=== PATIENT | male | born 1970 | race Caucasian/White ===

== ENCOUNTER 2016-04-11 14:18 | Inpatient (IN) | payer OTHER ==
[2016-04-11] MEDS ORDERED: Adenocard IV 6 MG/2 ML IV ONE ×2 (14:38→14:55)
[2016-04-11] MEDS ORDERED: Sodium Chloride 0.9% 1000 ML 1,000 ML ONE (14:38)
[2016-04-11] MEDS ORDERED: Cardizem IV 50 MG/10 ML IV ONE (14:46)
[2016-04-11] MEDS ORDERED: CARDIZEM DRIP 100 MG/100 ML D5W 100 ML IV ONE (14:47)
[2016-04-11] MEDS ORDERED: BABY ASPIRIN 81 MG CHEW PO ONE (14:48)
--- NOTE | 2016-04-11 14:54 | ERPHSYRPT ---
- History of Present Illness Time Seen by Provider: 04/11/16 14:37 Source: patient Exam Limitations: no limitations Patient Subjective Stated Complaint: pt walked in for fast heart rate and dizziness today for about 4 hours now, started at rest, does not drink lots of caffine Triage Nursing Assessment: pt alert, resp easy, skin w/d, chest clear, no edema noted, Physician History: 45-year-old white male arrives with complaint of fluttering in his chest and lightheadedness symptoms since 9:30 he denies any shortness of breath denies any vomiting states he really does not have pain but he does have a fluttering sensation in his left chest patient is noted have a rapid heart rate, Past medical history is negative. Surgical history is negative. Patient states he does not take excessive caffeine use. Patient states he chews tobacco Timing/Duration: today (9:30 AM) Severity: moderate Modifying Factors: Improves With: nothing Associated Symptoms: other (ightheaded palpitations in the left upper chest), No nausea, No vomiting, No abdominal pain, No shortness of breath, No heartburn , No diaphoresis, No cough, No chills, No chest pain, No fever, No headaches, No loss of appetite, No malaise, No rash, No syncope, No seizure, No weakness Allergies/Adverse Reactions: No Known Drug Allergies Allergy (Unverified 04/11/16 14:28) Home Medications: No Reportable Medications [No Reported Medications] 04/11/16 [History] Hx Influenza Vaccination/Date Given: No Hx Pneumococcal Vaccination/Date Given: No Immunizations Up to Date: Yes - Review of Systems Constitutional: Other (patient feels lightheaded), No Fever, No Chills Eyes: No Symptoms Ears, Nose, & Throat: No Symptoms, No Ear Pain, No Ear Discharge, No Hearing Changes, No Tinnitus, No Nose Pain, No Nose Congestion, No Nose Discharge, No Sinus Drainage, No Epistaxis, No Mouth Pain, No Mouth Swelling, No Loose Teeth, No Throat Pain, No Throat Swelling, No Hoarse, No Painful Swallowing, No Snoring , No Stridor Respiratory: No Cough, No Dyspnea Cardiac: Palpitations, No Chest Pain, No Edema, No Syncope Abdominal/Gastrointestinal: No Abdominal Pain, No Nausea, No Vomiting, No Diarrhea Genitourinary Symptoms: No Dysuria Musculoskeletal: No Back Pain, No Neck Pain Skin: No Rash Neurological: No Dizziness, No Focal Weakness, No Sensory Changes Psychological: No Symptoms Endocrine: No Symptoms All Other Systems: Reviewed and Negative - Past Medical History Pertinent Past Medical History: No - Past Surgical History Past Surgical History: No - Social History Smoking Status: Never smoker Exposure to second hand smoke: No Drug Use: none Patient Lives Alone: No - Nursing Vital Signs Nursing Vital Signs: Initial Vital Signs Temperature 97.4 F Temperature Source Oral Pulse Rate [] 150 Pulse Rate 82 Respiratory Rate 20 Blood Pressure [] 106/66 Pain Intensity 0 - Physical Exam General Appearance: no apparent distress, alert Eye Exam: PERRL/EOMI, eyes nml inspection Ears, Nose, Throat Exam: normal ENT inspection, TMs normal, pharynx normal, moist mucous membranes Neck Exam: normal inspection, non-tender, supple, full range of motion Respiratory Exam: normal breath sounds, lungs clear, No respiratory distress Cardiovascular Exam: tachycardia Gastrointestinal/Abdomen Exam: soft, normal bowel sounds, No tenderness, No mass Back Exam: normal inspection, normal range of motion, No CVA tenderness, No vertebral tenderness Extremity Exam: normal inspection, normal range of motion, pelvis stable Neurologic Exam: alert, oriented x 3, cooperative, normal mood/affect, nml cerebellar function, nml station & gait, sensation nml, No motor deficits Skin Exam: normal color, warm, dry, No rash Lymphatic Exam: No adenopathy SpO2 Interpretation: normal (96%) SpO2: 96 Oxygen Delivery: Room Air - Course Nursing assessment & vital signs reviewed: Yes EKG Interpreted by Me: RATE (141 nbpm), Other (supraventricular tachycardia 141 bpm narrow complex no acute ST or T wave changes, axisSI/QIII pattern) - Radiology Exams Chest X-ray Interpretation: Discussed w/ radiologist, Negative Ordered Tests: Active Orders 24 hr Category Date Time Status 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 Care 04/11/16 14:48 Active EKG-ER Only STAT Care 04/11/16 14:48 Active EKG-ER Only STAT Care 04/11/16 15:31 Active CHEST 1 VIEW (PORTABLE) Stat Exams 04/11/16 14:48 Completed CBC W DIFF Stat Lab 04/11/16 14:40 Completed CMP Stat Lab 04/11/16 14:40 Completed D-DIMER QUANTITATION Stat Lab 04/11/16 14:40 Completed TROPONIN Q3H Lab 04/11/16 14:40 Completed TROPONIN Q3H Lab 04/11/16 18:00 Ordered TROPONIN Q3H Lab 04/11/16 21:00 Ordered TROPONIN Q3H Lab 04/12/16 00:00 Ordered TROPONIN Q3H Lab 04/12/16 03:00 Ordered Transfer Order Routine Transfer 04/11/16 16:03 Ordered Medication Summary Generic Name Dose Route Start Last Admin Trade Name Freq PRN Reason Stop Dose Admin Sodium Chloride 1,000 mls @ 100 mls/hr 04/11/16 15:00 04/11/16 15:02 Sodium Chloride 0.9% 1000 Ml IV 05/11/16 14:59 100 mls/hr .Q10H SARANYA Administration Discontinued Medications Generic Name Dose Route Start Last Admin Trade Name Freq PRN Reason Stop Dose Admin Adenosine Confirm 04/11/16 14:38 Adenocard Iv 6 Mg/2 Ml Administered 04/11/16 14:39 Dose 6 mg IV .STK-MED ONE Adenosine Confirm 04/11/16 14:55 Adenocard Iv 6 Mg/2 Ml Administered 04/11/16 14:56 Dose 12 mg IV .STK-MED ONE Aspirin 162 mg 04/11/16 14:48 04/11/16 15:02 Baby Aspirin 81 Mg Chew PO 04/11/16 14:49 162 mg STAT ONE Administration Diltiazem HCl Confirm 04/11/16 14:46 Cardizem Iv 50 Mg/10 Ml Administered 04/11/16 14:47 Dose 50 mg IV .STK-MED ONE Sodium Chloride Confirm 04/11/16 14:38 Sodium Chloride 0.9% 1000 Ml Administered 04/11/16 14:39 Dose 1,000 mls @ ud .ROUTE .STK-MED ONE Diltiazem HCl Confirm 04/11/16 14:47 Cardizem Drip 100 Mg/100 Ml D5w Administered 04/11/16 14:48 Dose 100 mls @ ud IV .STK-MED ONE Lab/Rad Data: Laboratory Result Diagrams 04/11/16 14:40 04/11/16 14:40 Laboratory Results 04/11/16 04/11/16 04/11/16 Range/Units 14:40 14:40 14:40 WBC (4.0-10.5) K/mm3 RBC (4.1-5.6) M/mm3 Hgb (12.5-18.0) gm/dl Hct (42-50) % MCV (78-100) fl MCH (26-32) pg MCHC (32-36) g/dl RDW (11.5-14.0) % Plt Count (150-450) K/mm3 MPV (6-9.5) fl Gran % (36.0-66.0) % Lymphocytes % (24.0-44.0) % Monocytes % (0.0-12.0) % Eosinophils % (0.00-5.0) % Basophils % (0.0-0.4) % Basophils # (0-0.4) D-Dimer < 0.20 (0.00-0.49) mg/L Sodium 138 (136-145) mEq/L Potassium 4.4 (3.5-5.1) mEq/L Chloride 105 (98-107) mEq/L Carbon Dioxide 20.1 L (21-32) mEq/L Anion Gap 17.5 H (5-15) MEQ/L BUN 15 (9-20) mg/dL Creatinine 1.13 (0.55-1.30) mg/dl Estimated GFR > 60 ML/MIN Glucose 113 H (70-110) MG/DL Calcium 8.7 (8.5-10.1) mg/dL Total Bilirubin 0.5 (0.2-1.0) mg/dL AST 38 H (15-37) U/L ALT 46 (12-78) U/L Alkaline Phosphatase 77 (46-116) U/L Troponin I < 0.017 (0.000-0.056) ng/ml Serum Total Protein 7.3 (6.4-8.2) gm/dL Albumin 3.6 (3.4-5.0) g/dL 04/11/16 Range/Units 14:40 WBC 8.5 (4.0-10.5) K/mm3 RBC 6.09 H (4.1-5.6) M/mm3 Hgb 17.2 (12.5-18.0) gm/dl Hct 50.6 H (42-50) % MCV 83.1 (78-100) fl MCH 28.2 (26-32) pg MCHC 34.0 (32-36) g/dl RDW 14.0 (11.5-14.0) % Plt Count 264 (150-450) K/mm3 MPV 9.9 H (6-9.5) fl Gran % 57.4 (36.0-66.0) % Lymphocytes % 28.0 (24.0-44.0) % Monocytes % 11.8 (0.0-12.0) % Eosinophils % 2.2 (0.00-5.0) % Basophils % 0.6 (0.0-0.4) % Basophils # 0.05 (0-0.4) D-Dimer (0.00-0.49) mg/L Sodium (136-145) mEq/L Potassium (3.5-5.1) mEq/L Chloride (98-107) mEq/L Carbon Dioxide (21-32) mEq/L Anion Gap (5-15) MEQ/L BUN (9-20) mg/dL Creatinine (0.55-1.30) mg/dl Estimated GFR ML/MIN Glucose (70-110) MG/DL Calcium (8.5-10.1) mg/dL Total Bilirubin (0.2-1.0) mg/dL AST (15-37) U/L ALT (12-78) U/L Alkaline Phosphatase (46-116) U/L Troponin I (0.000-0.056) ng/ml Serum Total Protein (6.4-8.2) gm/dL Albumin (3.4-5.0) g/dL - Progress Progress: improved Progress Note: 04/11/16 14:54 This is a 45-year-old white male previously healthy who arrives with complaints of fluttering in his left upper chest symptoms since 9:30 this morning she denies any shortness of breath no chest pain he does state he is feeling lightheaded. Patient is noticed to have a rapid narrow complex tachycardia 1 41 bpm on EKG there are no acute ST or T wave changes noted patient is noted have a heart rate running around 150 going around to the high 140s. Patient is given adenosine 6 mg and 12 mg grams successively IV both times with a slight slowing in rate with resumption of the heart rate therefore he was given Cardizem 20 mg bolus and started on Cardizem 10 mg per hour drip Patient's states she had already given the patient aspirin 162 mg orally will go ahead and give patient aspirin 162 mg cardiac enzymes will be obtained as well as appropriate labs and chest x-ray. 04/11/16 15:43 Patient with good response to Cardizem currently on Cardizem drip had received 20 mg IV bolus. Heart rate now 70-80. EKG atrial fibrillation 73 bpm normal axis no acute ST or T wave changes noted time of EKG to 04-11-16 at 1538. 04/11/16 16:01 His cast case with Dr. Pavan Ta who is filtration supervisor for service call for the hospital Will place patient on ICU diagnosis new onset atrial fibrillation Palpitations. Will place patient on the ICU have ICU wean patient's Cardizem drip. Will obtain serial cardiac enzymes. Dr. Ta has requested a urine triage as well as TSH. - Departure Time of Disposition: 16:02 Departure Disposition: Observation (observation ICU Dr. Ta) Clinical Impression: New onset atrial fibrillation, Atrial fibrillation with rapid ventricular response, Palpitations Condition: Fair Critical Care Time: Yes Critical Care Time(excluding separately billable procedures): 30-74 minutes Referrals: BHAVYA RIVERA NP [Primary Care Provider] -
[2016-04-11 14:59] LABS: BASOPHIL % 0.6 % (0.0-0.4); Eosinophil % 2.2 % (0.00-5.0); Granulocytes % 57.4 % (36.0-66.0); Mean Cell Volume 83.1 fl (78-100); Mean Corpuscular Hemoglobin 28.2 pg (26-32); Mean Platelet Volume 9.9 fl (6-9.5); Monocytes % 11.8 % (0.0-12.0); Platelet Count 264 K/mm3 (150-450); Red Blood Count 6.09 M/mm3 (4.1-5.6); White Blood Count 8.5 K/mm3 (4.0-10.5)
[2016-04-11] MEDS ORDERED: Sodium Chloride 0.9% 1000 ML 1,000 ML IV SCH ×2 (15:00→19:15)
--- NOTE | 2016-04-11 15:07 | XRAY ---
Indication: Tachycardia. Comparison: None Portable apical lordotic chest demonstrates normal heart, lungs, and bony thorax.
[2016-04-11 15:12] LABS: ALBUMIN 3.6 g/dL (3.4-5.0); ALKALINE PHOSPHATASE 77 U/L (46-116); ANION GAP 17.5 MEQ/L (5-15); BILIRUBIN,TOTAL 0.5 mg/dL (0.2-1.0); BLOOD UREA NITROGEN 15 mg/dL (9-20); CHLORIDE 105 mEq/L (98-107); Carbon Dioxide 20.1 mEq/L (21-32); Glucose 113 MG/DL (70-110); Potassium 4.4 mEq/L (3.5-5.1); SGOT/AST 38 U/L (15-37); SGPT/ALT 46 U/L (12-78); SODIUM 138 mEq/L (136-145); Total Protein 7.3 gm/dL (6.4-8.2)
[2016-04-11] MEDS ORDERED: MILK OF MAGNESIA 30 ML PO PRN (16:58)
[2016-04-11] MEDS ORDERED: Zofran 4 MG/2 ML VIAL IV PRN (16:58)
[2016-04-11] MEDS ORDERED: Senokot-S Tablet PO PRN (16:58)
[2016-04-11] MEDS ORDERED: MAALOX ES 30 ML UNIT DOSE PO PRN (16:58)
[2016-04-11] MEDS: TYLENOL 325 MG PO PRN (17:06)
--- NOTE | 2016-04-11 18:28 | PCM.HP ---
History of Present Illness - Chief Complaint Chief Complaint: AFIB with RVR Date: 04/11/16 History of Present Illness: is a 45 year old male. previously healthy who has been at home on a long weekend and woke up this am and did not feel himself. He began having fatigue and fluttering in his chest and told his who checked his pulse which was high and erratic. He has never had symptoms like this in the past. he had no chest pain. He rarely drinks alcohol and had 1 beer over the weekend. He denies any illegal drug use and no supplements. He denies any excessive caffeine use. He was feeling well up until today with no new symptoms. - Review of Systems Constitutional: No Fever, No Chills Eyes: No Symptoms Ears, Nose, & Throat: No Symptoms Respiratory: No Cough, No Short Of Breath Cardiac: Palpitations, No Chest Pain, No Edema, No Syncope, No Orthopnea Abdominal/Gastrointestinal: No Abdominal Pain, No Nausea, No Vomiting, No Diarrhea Genitourinary Symptoms: No Dysuria Musculoskeletal: No Back Pain, No Neck Pain Skin: No Rash Neurological: No Dizziness, No Focal Weakness, No Sensory Changes Psychological: No Symptoms Endocrine: No Symptoms Hematologic/Lymphatic: No Symptoms Immunological/Allergic: No Symptoms Medications & Allergies Home Medications: Home Medication List No Reportable Medications [No Reported Medications] 04/11/16 [History Confirmed 04/11/16] Allergies/Adverse Reactions: Allergies Allergy/AdvReac Type Severity Reaction Status Date / Time No Known Drug Allergies Allergy Unverified 04/11/16 14:28 - Past Medical History Past Medical History: No Neurological History: No Pertinent History ENT History: No Pertinent History Cardiac History: No Pertinent History Respiratory History: No Pertinent History Endocrine Medical History: No Pertinent History Musculoskelatal History: No Pertinent History GI Medical History: No Pertinent History History: No Pertinent History Pyscho-Social History: No Pertinent History Male Reproductive Disorders: No Pertinent History - Past Surgical History Past Surgical History: No - Social History Smoking Status: Never smoker (chews tobacco daily) Exposure to second hand smoke: No Alcohol: Rarely Drug Use: none Significant Family History: other (Mother at 56 y/o from apparent pulmonary embolism. Father from COPD and traumatic brain injury) - Physical Exam Vital Signs: Vital Signs - 24 hr Temp Pulse Pulse Resp BP Pulse Ox 04/11/16 17:59 98.3 F 73 23 104/69 97 04/11/16 17:18 98.7 F 78 18 101/69 95 04/11/16 17:00 98.3 F 73 23 104/69 97 04/11/16 16:13 96 04/11/16 15:53 82 20 106/66 96 04/11/16 15:00 82 14 116/56 96 04/11/16 14:30 150 H 04/11/16 14:25 97.4 F 148 H 20 112/67 96 General Appearance: no apparent distress, alert, obese Neurologic Exam: alert, oriented x 3, cooperative, normal mood/affect, nml cerebellar function, nml station & gait, sensation nml, No motor deficits Eye Exam: PERRL/EOMI, eyes nml inspection Ears, Nose, Throat Exam: normal ENT inspection, TMs normal, pharynx normal, moist mucous membranes Neck Exam: normal inspection, non-tender, supple, full range of motion Respiratory Exam: normal breath sounds, lungs clear, No respiratory distress Cardiovascular Exam: regular rate/rhythm, normal heart sounds, normal peripheral pulses, irregular, No murmur, No edema Gastrointestinal/Abdomen Exam: soft, normal bowel sounds, No tenderness, No mass Back Exam: normal inspection, normal range of motion, No CVA tenderness, No vertebral tenderness Extremity Exam: normal inspection, normal range of motion, pelvis stable Skin Exam: normal color, warm, dry, No rash Lymphatic Exam: No adenopathy Results - Labs Lab/Micro Results: Lab Results-Last 24 Hours 04/11/16 Range/Units 16:58 TSH 3rd Generation 0.737 (0.358-3.740) mIU/L - Radiology Impressions Radiology Exams & Impressions: Radiology Procedures Category Date Time Status ECHO W/2D AND DOPPLER [US] Routine Exams 04/11/16 17:57 Ordered - Other Procedures and Tests Respiratory Therapy 04/11/16 23:38 EKG ONCE 04/12/16 05:00 EKG ONCE 04/13/16 05:00 EKG ONCE 04/14/16 05:00 EKG ONCE Assessment/Plan (1) Atrial fibrillation with rapid ventricular response Current Visit: Yes Status: Acute Assessment & Plan: will get echocardiogram likely onset today but no previous exam will rate control and anticoagulate discussed anticoagulation options he would prefer no monitoring if possible discussed if echo with structural disease will need to change therapy start eliquis now currently labile HR with movement will continue gtt wean as tolerated tonight on cardizem and transition to po in am. trend troponins Code(s): I48.91 - UNSPECIFIED ATRIAL FIBRILLATION (2) New onset atrial fibrillation Current Visit: Yes Status: Acute Code(s): I48.91 - UNSPECIFIED ATRIAL FIBRILLATION
[2016-04-11 19:00] LABS: MAGNESIUM 1.9 mg/dL (1.8-2.4)
[2016-04-11 19:01] LABS: TROPONIN < 0.017 ng/ml (0.000-0.056)
[2016-04-11] MEDS: ELIQUIS PO SCH (21:48)
[2016-04-12] MEDS ORDERED: CARDIZEM DRIP 100 MG/100 ML D5W 100 ML IV ONE (00:21)
[2016-04-12] MEDS: TYLENOL 325 MG PO PRN (00:26)
[2016-04-12] MEDS ORDERED: CARDIZEM DRIP 100 MG/100 ML D5W 100 ML IV SCH (00:30)
[2016-04-12] MEDS: Lopressor 25MG Tab PO SCH ×2 (08:51→09:22)
[2016-04-12] MEDS: ELIQUIS PO SCH (08:51)
[2016-04-12] MEDS ORDERED: Ecotrin 325 MG PO SCH (10:00)
[2016-04-12 10:07] VITALS: O2SAT 97
[2016-04-12 12:10] VITALS: BP 113/85; PULSE 141
--- NOTE | 2016-04-12 13:00 | PCM.NOTE ---
Date and Time: 04/12/16 1256 Subjective Assessment: feeling a little better this am. He had low bp and some bradycardia overnight and Cardizem gtt was stopped has been doing well since then but has not been up yet. jumps to the 140's with any activity at this point. Objective Exam General Appearance: no apparent distress, alert Neurologic Exam: alert, oriented x 3, cooperative, normal mood/affect, nml cerebellar function, sensation nml, No motor deficits Skin Exam: normal color, warm, dry Eye Exam: PERRL, EOMI, eyes nml inspection Ears, Nose, Throat Exam: normal ENT inspection, pharynx normal, moist mucous membranes Neck Exam: normal inspection, non-tender, supple, full range of motion Respiratory Exam: normal breath sounds, lungs clear, No respiratory distress Cardiovascular Exam: normal heart sounds, normal peripheral pulses, irregular, No edema Gastrointestinal/Abdomen Exam: soft, No tenderness, No mass Extremity Exam: normal inspection, normal range of motion Back Exam: normal inspection, normal range of motion, No CVA tenderness, No vertebral tenderness Male Genitalia Exam: deferred Rectal Exam: deferred OBJECTIVE DATA Vital Signs: Vital Signs - 24 hr Temp Pulse Pulse Resp BP Pulse Ox 04/12/16 12:00 141 H 21 113/85 97 04/12/16 10:06 94 H 21 101/69 97 04/12/16 07:32 91 H 21 90/68 96 04/12/16 07:00 84 21 90/68 93 L 04/12/16 06:00 76 25 H 83/58 96 04/12/16 05:00 74 21 86/42 96 04/12/16 04:00 61 22 81/55 93 L 04/12/16 03:00 65 21 81/49 92 L 04/12/16 02:41 64 18 98/56 96 04/12/16 02:30 62 23 85/49 91 L 04/12/16 02:00 66 20 98/56 94 L 04/12/16 01:30 66 24 78/51 94 L 04/12/16 01:00 71 20 84/59 94 L 04/12/16 00:01 66 04/12/16 00:00 97.4 F 66 22 109/61 94 L 04/11/16 23:00 79 22 106/65 94 L 04/11/16 22:00 72 22 94/69 97 04/11/16 21:00 74 27 H 99/65 95 04/11/16 20:00 98.1 F 91 H 20 96/60 93 L 04/11/16 18:56 98.1 F 80 31 H 96/64 95 04/11/16 17:59 98.3 F 73 23 104/69 97 04/11/16 17:18 98.7 F 78 18 101/69 95 04/11/16 17:00 98.3 F 73 23 104/69 97 04/11/16 16:13 96 04/11/16 15:53 82 20 106/66 96 04/11/16 15:00 82 14 116/56 96 04/11/16 14:30 150 H 04/11/16 14:25 97.4 F 148 H 20 112/67 96 Pain Assessment - Last Documented Pain Intensity 3 Pain Scale Used 0-10 Pain Scale Intake and Output: Intake & Output 04/10/16 04/11/16 04/12/16 04/13/16 11:59 11:59 11:59 11:59 Intake Total 916 Output Total 2425 Balance -1509 Weight 135.171 kg Lab Results: Lab Results-Last 24 Hours 04/11/16 04/11/16 04/11/16 Range/Units 16:58 18:24 19:01 Magnesium 1.9 (1.8-2.4) mg/dL Troponin I < 0.017 (0.000-0.056) ng/ml Triglycerides (30-200) mg/dL Cholesterol (100-200) mg/dL LDL Cholesterol (5-99) mg/dL HDL Cholesterol (35-60) mg/dL Heart Disease Risk Ratio TSH 3rd Generation 0.737 (0.358-3.740) mIU/L Urine Opiates Level NEG. (NEGATIVE) Ur Methadone NEG. (NEGATIVE) Urine Barbiturates NEG. (NEGATIVE) Ur Phencyclidine (PCP) NEG. (NEGATIVE) Urine Amphetamine NEG. (NEGATIVE) U Benzodiazepine Level NEG. (NEGATIVE) Urine Cocaine NEG. (NEGATIVE) Urine Marijuana (THC) NEG. (NEGATIVE) 04/11/16 04/12/16 04/12/16 Range/Units 21:00 00:12 02:47 Magnesium (1.8-2.4) mg/dL Troponin I < 0.017 < 0.017 < 0.017 (0.000-0.056) ng/ml Triglycerides (30-200) mg/dL Cholesterol (100-200) mg/dL LDL Cholesterol (5-99) mg/dL HDL Cholesterol (35-60) mg/dL Heart Disease Risk Ratio TSH 3rd Generation (0.358-3.740) mIU/L Urine Opiates Level (NEGATIVE) Ur Methadone (NEGATIVE) Urine Barbiturates (NEGATIVE) Ur Phencyclidine (PCP) (NEGATIVE) Urine Amphetamine (NEGATIVE) U Benzodiazepine Level (NEGATIVE) Urine Cocaine (NEGATIVE) Urine Marijuana (THC) (NEGATIVE) 04/12/16 Range/Units 05:25 Magnesium (1.8-2.4) mg/dL Troponin I (0.000-0.056) ng/ml Triglycerides 134 (30-200) mg/dL Cholesterol 193 (100-200) mg/dL LDL Cholesterol 143 H (5-99) mg/dL HDL Cholesterol 31 L (35-60) mg/dL Heart Disease Risk Ratio 6.2 TSH 3rd Generation (0.358-3.740) mIU/L Urine Opiates Level (NEGATIVE) Ur Methadone (NEGATIVE) Urine Barbiturates (NEGATIVE) Ur Phencyclidine (PCP) (NEGATIVE) Urine Amphetamine (NEGATIVE) U Benzodiazepine Level (NEGATIVE) Urine Cocaine (NEGATIVE) Urine Marijuana (THC) (NEGATIVE) Radiology Exams: Radiology Procedures Category Date Time Status ECHO W/2D AND DOPPLER [US] Routine Exams 04/12/16 17:57 Taken Assessment/Plan (1) Atrial fibrillation with rapid ventricular response Current Visit: Yes Status: Acute Assessment & Plan: continue anticoagulation with Eliquis try the metoprolol 25 po bid transfer to [facility] if symptoms not controlled could try pharmacologic cardioversion with his low risk and likely onset yesterday. If symptoms controlled will keep anticoagulated with rate control and cardiology f/u plan pharmacological vs electric cardioversion in 3 weeks. Code(s): I48.91 - UNSPECIFIED ATRIAL FIBRILLATION (2) New onset atrial fibrillation Current Visit: Yes Status: Acute Code(s): I48.91 - UNSPECIFIED ATRIAL FIBRILLATION
--- NOTE | 2016-04-13 18:44 | PCM.DS ---
Discharge Summary Date of Admission: 04/11/16 16:52 Date of Discharge: 04/12/2016 Admitting Physician: SANTOSH RAM Primary Care Provider: BHAVYA RIVERA Allergies Allergies No Known Drug Allergies Allergy (Unverified 04/11/16 14:28) Hospital Summary - Hospital Course Hospital Course: Mr. Nogueira is a previously healthy 45 y/o man with history of chewing tobacco use and obesity but otherwise healthy with no previous heart disorder or medical problems and no alcohol or substance abuse who presented with acute onset fatigue and palpitations. He was found to be in afib with rvr. His heart rate was slowed with a cardizem gtt and ekg showed no evidence of ischemia. Troponins were trended and no evidence of MO. TSH and electrolytes were within normal limits and echocardiogram was obtained with preliminary report being unremarkable but the final cardiology reading is pending at this time. Overnight the night of admission he had some hypotension and bradycardia on the gtt while asleep and it was stopped. He was then started on po metroprolol in the am and the HR would jump to the 140's with minimal activity until it spontaneously converted to sinus rhythm at around noon. He was also started on Eliquis when he was admitted. The diagnosis and treatment of atrial fibrillation was discussed in detail. He lives out of town and would like to follow up with cardiology in [place] and this is arranged he will maintain the Eliquis and the metoprolol for now but has reverted to sinus rhythm spontaneously this am. - Vitals & Intake/Output Vital Signs: Vital Signs Temperature 97.4 F 04/12/16 00:00 Pulse Rate 141 H 04/12/16 12:00 Respiratory Rate 21 04/12/16 12:00 Blood Pressure 113/85 04/12/16 12:00 O2 Sat by Pulse Oximetry 97 04/12/16 12:00 Intake & Output: Intake & Output 04/11/16 04/12/16 04/13/16 04/14/16 11:59 11:59 11:59 11:59 Intake Total 916 480 Output Total 2425 300 Balance -1509 180 Weight 135.171 kg - Lab Result Diagrams: 04/11/16 14:40 04/11/16 14:40 - Radiology Exams Ordered Rad Exams-Entire Visit: Radiology Procedures Category Date Time Status ECHO W/2D AND DOPPLER [US] Routine Exams 04/12/16 17:57 Taken - Procedures and Test Procedures and Tests throughout Hospitalization: Therapy Orders & Screens 04/11/16 23:38 EKG ONCE Comment: 04/12/16 05:00 EKG ONCE Comment: 04/13/16 05:00 EKG ONCE Comment: 04/14/16 05:00 EKG ONCE Comment: Discharge Exam General Appearance: no apparent distress, alert, obese Neurologic Exam: alert, oriented x 3, cooperative, normal mood/affect, nml cerebellar function, sensation nml, No motor deficits Skin Exam: normal color, warm, dry Eye Exam: PERRL, EOMI, eyes nml inspection Ears, Nose, Throat Exam: normal ENT inspection, pharynx normal, moist mucous membranes Neck Exam: normal inspection, non-tender, supple, full range of motion Respiratory Exam: normal breath sounds, lungs clear, No respiratory distress Cardiovascular Exam: regular rate/rhythm, normal heart sounds Gastrointestinal/Abdomen Exam: soft, No tenderness, No mass Extremity Exam: normal inspection, normal range of motion Back Exam: normal inspection, normal range of motion, No CVA tenderness, No vertebral tenderness Male Genitalia Exam: deferred Rectal Exam: deferred Final Diagnosis/Problem List - Final Discharge Diagnosis/Problem (1) Atrial fibrillation with rapid ventricular response Status: Acute (2) New onset atrial fibrillation Status: Acute - Discharge Discharge Date: 04/12/16 Disposition: Home, Self-Care Condition: Good Prescriptions: Continue Apixaban [Eliquis] 5 mg PO BID #60 tablet Metoprolol Tartrate 25 mg [Lopressor 25MG Tab] 25 mg PO BID #60 tab Instructions: Heart-Healthy Diet, Atrial Fibrillation Follow up with: BHAVYA RIVERA NP [Primary Care Provider] - Forms: Discharge Instructions, Patient Portal Information, Work/School Release Form
== END 2016-04-12 15:34 | disposition home or self-care (01) | DRG 310 ==
LOC: ED 14:18 → ICU 16:52
PROVIDERS: ADMIT Family Medicine; ATTEND Family Medicine
DX: I48.91 Unspecified atrial fibrillation (principal)
CPT/HCPCS: 36000; 36415; 71010; 80053; 80061; 80307; 83721; 83735; 84443; 84484; 85025; 85379; 93005; 93041; 93306; 96360; 96361; 96365; 96366; 99284; 99285; J0153